=== PATIENT | male | born 1945 | race Caucasian/White ===

== ENCOUNTER 2018-06-25 17:57 | Inpatient (IN) ==
[2018-06-25] MEDS ORDERED: DIPH/TET/ACEL PERT BOOSTER VACCINE 0.5 ML VIAL IM ONE (18:35)
[2018-06-25] MEDS ORDERED: SODIUM CHLORIDE 0.9% 1,000 ML IV STA (18:35)
[2018-06-25] MEDS ORDERED: ALBUTEROL/IPRATROPIUM 3 ML NEB RESP TX STA (18:37)
[2018-06-25 19:46] LABS: Basophils # 0.1 10*3/uL (0.0-0.2); Basophils % 0.4 % (0.0-0.8); Hematocrit 45.4 VOL% (42.0-52.0); Hemoglobin 15.2 GM/DL (14.0-18.0); Immature Granulocytes % 0.4 %; Immature Granulocytes Absolute 0.05 #; Lymphocytes # 1.3 10*3/uL (1.4-4.0); Lymphocytes % 9.6 % (21.2-54.2); Mean Corpuscular HGB Conc 33.5 GM/DL (32-36); Mean Corpuscular Hemoglobin 29 PG (27-34); Mean Corpuscular Volume 86.8 FL (87-102); Mean Platelet Volume 9.3 FL (9.6-12.0); Monocytes # 0.7 10*3/uL (0.11-0.8); Monocytes % 5.3 % (1.7-12.7); Neutrophils # 11.2 10*3/uL (1.4-7.4); Neutrophils % 84.3 % (38.7-73.9); Platelet Count 276 T/CUMM (130-400); Red Blood Count 5.23 MC/CUMM (3.8-5.5); Red Cell Distribution Width 13.6 % (9.3-17.3); White Blood Count 13.3 T/CUMM (4-12)
[2018-06-25 19:55] LABS: Apearance,Urine Slightly Hazy (Clear); Bilirubin,Urine Negative (Negative); Blood, Urine Large mg/dL (Negative); Glucose,Urine (UA) Negative (Negative); Ketones,Urine Negative (Negative); Mucus,Urine Occasional /LPF (Occasional); Nitrite,Urine Negative (Negative); Protein,Urine 100 MG/DL; RBC,Urine 386 /HPF (0-4); Urine Color Yellow (Yellow); Urine Specific Gravity 1.014 (1.001-1.035); Urine Urobilinogen < 2.0 EU/DL (0.2-1.0)
[2018-06-25 20:09] LABS: Albumin 3.1 G/DL (3.4-5.0); Bilirubin,Total 0.6 MG/DL (0.2-1.0); Calcium 9.1 MG/DL (8.5-10.1); Osmolality,Calculated 265.5 MOS/KG (273-304); Potassium 3.8 MMOL/L (3.5-5.1); Total Protein 8.1 G/DL (6.4-8.3)
[2018-06-25] MEDS ORDERED: ALBUTEROL 2.5 MG/3 ML NEB RESP TX PRN (21:48)
[2018-06-25 22:10] LABS: ABG Base Excess 2.3 MMOL/L (-2.5-2.5); ABG HCO3 26.3 MMOL/L (20-26); ABG Oxygen Saturation 91.2 % (95-100); ABG PCO2 41.2 MM HG (35-48); ABG PH 7.424 (7.35-7.45); ABG PO2 61.8 MM HG (80-95); ABG TCO2 22.9 MMOL/L (23-27); Allen Test Positive; Pt O2 Delivery Device BIPAP
[2018-06-25] MEDS: LEVOFLOXACIN INJ 750 MG in PREMIX 1 EACH IV SCH (23:00)
[2018-06-25] MEDS: methylPREDNISolone SOD SUC 40 MG/1 ML VIAL IV SCH ×2 (23:00→23:50)
[2018-06-25] MEDS: PANTOPRAZOLE 40 MG VIAL IV SCH (23:00)
[2018-06-26 03:17] LABS: Amorphous Crystals,Urine Occasional /HPF (Few); Apearance,Urine CLEAR (Clear); Bacteria,Urine Occasional /HPF (Few); Bilirubin,Urine Negative (Negative); Blood, Urine Large mg/dL (Negative); Glucose,Urine (UA) Negative (Negative); Hyaline Casts,Urine 13 /LPF (0-3); Ketones,Urine Negative (Negative); Mucus,Urine Occasional /LPF (Occasional); Nitrite,Urine Negative (Negative); Protein,Urine 30 MG/DL; RBC,Urine 3 /HPF (0-4); Squamous Epithelial Cell,Urine Occasional /HPF (0-10); Urine Color Yellow (Yellow); Urine Specific Gravity 1.012 (1.001-1.035); Urine Urobilinogen < 2.0 EU/DL (0.2-1.0); WBC,Urine 2 /HPF (0-6)
[2018-06-26 03:31] LABS: ABG Base Excess 1.8 MMOL/L (-2.5-2.5); ABG HCO3 25.8 MMOL/L (20-26); ABG Oxygen Saturation 92.1 % (95-100); ABG PCO2 42.3 MM HG (35-48); ABG PH 7.409 (7.35-7.45); ABG TCO2 22.8 MMOL/L (23-27); Allen Test Positive; Pt O2 Delivery Device BIPAP
[2018-06-26 03:37] LABS: Basophils # 0.1 10*3/uL (0.0-0.2); Basophils % 0.4 % (0.0-0.8); Immature Granulocytes % 0.4 %; Immature Granulocytes Absolute 0.05 #; Lymphocytes % 8.5 % (21.2-54.2); Mean Corpuscular HGB Conc 34.1 GM/DL (32-36); Mean Corpuscular Hemoglobin 29 PG (27-34); Mean Corpuscular Volume 85.6 FL (87-102); Mean Platelet Volume 9.4 FL (9.6-12.0); Monocytes # 0.2 10*3/uL (0.11-0.8); Neutrophils # 10.4 10*3/uL (1.4-7.4); Neutrophils % 88.7 % (38.7-73.9); Platelet Count 266 T/CUMM (130-400); Red Blood Count 5.14 MC/CUMM (3.8-5.5); Red Cell Distribution Width 13.5 % (9.3-17.3); White Blood Count 11.7 T/CUMM (4-12)
[2018-06-26 04:24] LABS: Calcium 8.5 MG/DL (8.5-10.1); Osmolality,Calculated 268.2 MOS/KG (273-304); Potassium 3.9 MMOL/L (3.5-5.1)
[2018-06-26] MEDS: IPRATROPIUM 500 MCG/2.5 ML NEB RESP TX SCH ×4 (07:09→19:14)
[2018-06-26] MEDS: BUDESONIDE 0.5 MG/2 ML NEB RESP TX SCH ×2 (07:09→19:18)
[2018-06-26] MEDS ORDERED: PANTOPRAZOLE 40 MG TABLET PO SCH (09:00)
[2018-06-26] MEDS: LORATADINE 10 MG TABLET PO SCH (09:18)
[2018-06-26] MEDS: ENOXAPARIN 40 MG/0.4 ML SYRINGE SUBCUT SCH (09:18)
[2018-06-26] MEDS: ALLOPURINOL 100 MG TABLET PO SCH (09:19)
[2018-06-26] MEDS: FUROSEMIDE 20 MG TABLET PO SCH (09:19)
[2018-06-26] MEDS: CARVEDILOL 3.125 MG TABLET PO SCH ×2 (09:19→18:03)
[2018-06-26] MEDS: POTASSIUM CHLORIDE 20 MEQ TABLET PO SCH (09:19)
[2018-06-26] MEDS: FLUTICASONE/SALMETEROL 250-50 DISKUS 14 DOSE INH SCH ×2 (09:20→23:04)
[2018-06-26] MEDS: LOSARTAN 50 MG TABLET PO SCH (09:20)
[2018-06-26] MEDS: SPIRONOLACTONE 25 MG TABLET PO SCH (09:20)
[2018-06-26] MEDS: amLODIPine 5 MG TABLET PO SCH (09:22)
[2018-06-26] MEDS: methylPREDNISolone SOD SUC 40 MG/1 ML VIAL IV SCH ×2 (11:45→23:05)
[2018-06-26] MEDS: LEVOFLOXACIN INJ 750 MG in PREMIX 1 EACH IV SCH (20:59)
[2018-06-26] MEDS ORDERED: THEOPHYLLINE ER 300 MG TABLET PO SCH (21:00)
[2018-06-26] MEDS: PANTOPRAZOLE 40 MG VIAL IV SCH (23:04)
[2018-06-27 04:19] LABS: Calcium 9.1 MG/DL (8.5-10.1); Osmolality,Calculated 267.5 MOS/KG (273-304); Potassium 4.6 MMOL/L (3.5-5.1)
[2018-06-27] MEDS: BUDESONIDE 0.5 MG/2 ML NEB RESP TX SCH ×2 (07:35→19:20)
[2018-06-27] MEDS: IPRATROPIUM 500 MCG/2.5 ML NEB RESP TX SCH ×4 (07:35→19:20)
[2018-06-27] MEDS: POTASSIUM CHLORIDE 20 MEQ TABLET PO SCH (10:34)
[2018-06-27] MEDS: amLODIPine 5 MG TABLET PO SCH (10:34)
[2018-06-27] MEDS: SPIRONOLACTONE 25 MG TABLET PO SCH (10:34)
[2018-06-27] MEDS: CARVEDILOL 3.125 MG TABLET PO SCH (10:35)
[2018-06-27] MEDS: ALLOPURINOL 100 MG TABLET PO SCH (10:35)
[2018-06-27] MEDS: ENOXAPARIN 40 MG/0.4 ML SYRINGE SUBCUT SCH (10:35)
[2018-06-27] MEDS: FUROSEMIDE 20 MG TABLET PO SCH (10:35)
[2018-06-27] MEDS: LORATADINE 10 MG TABLET PO SCH (10:35)
[2018-06-27] MEDS: LOSARTAN 50 MG TABLET PO SCH (10:35)
[2018-06-27] MEDS: methylPREDNISolone SOD SUC 40 MG/1 ML VIAL IV SCH ×2 (10:36→23:11)
[2018-06-27] MEDS: FLUTICASONE/SALMETEROL 250-50 DISKUS 14 DOSE INH SCH ×2 (10:37→21:00)
[2018-06-27] MEDS: CARVEDILOL 6.25 MG TABLET PO SCH (16:46)
[2018-06-27] MEDS: LEVOFLOXACIN INJ 750 MG in PREMIX 1 EACH IV SCH (23:10)
[2018-06-27] MEDS: PANTOPRAZOLE 40 MG VIAL IV SCH (23:10)
[2018-06-28] MEDS: IPRATROPIUM 500 MCG/2.5 ML NEB RESP TX SCH ×4 (07:18→19:13)
[2018-06-28] MEDS: BUDESONIDE 0.5 MG/2 ML NEB RESP TX SCH ×2 (07:18→19:14)
[2018-06-28] MEDS: LORATADINE 10 MG TABLET PO SCH (08:37)
[2018-06-28] MEDS: LOSARTAN 50 MG TABLET PO SCH (08:37)
[2018-06-28] MEDS: SPIRONOLACTONE 25 MG TABLET PO SCH (08:37)
[2018-06-28] MEDS: amLODIPine 5 MG TABLET PO SCH (08:37)
[2018-06-28] MEDS: CARVEDILOL 6.25 MG TABLET PO SCH ×2 (08:37→16:22)
[2018-06-28] MEDS: ALLOPURINOL 100 MG TABLET PO SCH (08:37)
[2018-06-28] MEDS: FUROSEMIDE 20 MG TABLET PO SCH (08:37)
[2018-06-28] MEDS: ENOXAPARIN 40 MG/0.4 ML SYRINGE SUBCUT SCH (08:37)
[2018-06-28] MEDS: POTASSIUM CHLORIDE 20 MEQ TABLET PO SCH (08:37)
[2018-06-28] MEDS: FLUTICASONE/SALMETEROL 250-50 DISKUS 14 DOSE INH SCH ×2 (08:38→21:29)
[2018-06-28] MEDS: methylPREDNISolone SOD SUC 40 MG/1 ML VIAL IV SCH ×3 (10:08→21:48)
[2018-06-28] MEDS ORDERED: ZALEPLON 5 MG CAPSULE PO PRN (17:11)
[2018-06-28] MEDS: PANTOPRAZOLE 40 MG VIAL IV SCH (21:29)
[2018-06-28] MEDS: LEVOFLOXACIN INJ 750 MG in PREMIX 1 EACH IV SCH (21:34)
[2018-06-29] MEDS: BUDESONIDE 0.5 MG/2 ML NEB RESP TX SCH (07:05)
[2018-06-29] MEDS: IPRATROPIUM 500 MCG/2.5 ML NEB RESP TX SCH (07:05)
[2018-06-29] MEDS: FLUTICASONE/SALMETEROL 250-50 DISKUS 14 DOSE INH SCH (09:59)
[2018-06-29] MEDS: POTASSIUM CHLORIDE 20 MEQ TABLET PO SCH (09:59)
[2018-06-29] MEDS: SPIRONOLACTONE 25 MG TABLET PO SCH (09:59)
[2018-06-29] MEDS: LORATADINE 10 MG TABLET PO SCH (09:59)
[2018-06-29] MEDS: FUROSEMIDE 20 MG TABLET PO SCH (10:00)
[2018-06-29] MEDS: methylPREDNISolone SOD SUC 40 MG/1 ML VIAL IV SCH (10:00)
[2018-06-29] MEDS: amLODIPine 5 MG TABLET PO SCH (10:00)
[2018-06-29] MEDS: LOSARTAN 50 MG TABLET PO SCH (10:00)
[2018-06-29] MEDS: ENOXAPARIN 40 MG/0.4 ML SYRINGE SUBCUT SCH (10:00)
[2018-06-29] MEDS: ALLOPURINOL 100 MG TABLET PO SCH (10:00)
[2018-06-29] MEDS: CARVEDILOL 6.25 MG TABLET PO SCH (10:00)
[2018-06-29 12:05] VITALS: BP 138/82
== END 2018-06-29 15:58 | DRG 189 ==
LOC: N.ED 17:57 → EDUNIT# 17:57 → N.EDINP 21:48 → SUATTDRO 21:48 → N.CC 22:30 → N.TELES 06-26 18:42
PROVIDERS: ADMIT Family Medicine; ATTEND Internal Medicine

== ENCOUNTER 2021-03-14 01:56 | Inpatient (IN) ==
[2021-03-14] MEDS ORDERED: FUROSEMIDE 40 MG/4 ML VIAL IV STA (02:19)
[2021-03-14] MEDS ORDERED: methylPREDNISolone SOD SUC 125 MG/2 ML VIAL IV STA (02:19)
[2021-03-14] MEDS ORDERED: ALBUTEROL 2.5 MG/3 ML NEB RESP TX ONE (02:30)
[2021-03-14] MEDS ORDERED: ONDANSETRON 4 MG/2 ML VIAL IV STA (02:30)
[2021-03-14] MEDS ORDERED: ALBUTEROL NEB SOLN 5 MG/ML 20 ML/BOTTLE CONT NEB SCH (02:30)
[2021-03-14 03:00] LABS: ABG Base Excess -0.5 MMOL/L (-2.5-2.5); ABG HCO3 23.6 MMOL/L (20-26); ABG Oxygen Saturation 84.4 % (95-100); ABG PCO2 33.8 MM HG (35-48); ABG PH 7.438 (7.35-7.45); ABG PO2 53.3 MM HG (80-95); ABG TCO2 19.5 MMOL/L (23-27)
[2021-03-14 03:08] LABS: Basophils % 0.2 % (0.0-0.8); Eosinophils % 0.2 % (0.00-10.9); Hematocrit 45.5 VOL% (42.0-52.0); Hemoglobin 14.3 GM/DL (14.0-18.0); Immature Granulocytes % 1.7 %; Immature Granulocytes Absolute 0.17 #; Lymphocytes # 0.5 10*3/uL (1.4-4.0); Lymphocytes % 5.4 % (21.2-54.2); Mean Corpuscular HGB Conc 31.4 GM/DL (32-36); Mean Corpuscular Volume 81.4 FL (87-102); Mean Platelet Volume 9.1 FL (9.6-12.0); Monocytes % 3.7 % (1.7-12.7); NRBC # 0.02 10*3/uL; Neutrophils % 88.8 % (38.7-73.9); Platelet Count 267 T/CUMM (130-400); Red Blood Count 5.59 MC/CUMM (3.8-5.5); Red Cell Distribution Width 16.6 % (9.3-17.3)
[2021-03-14] MEDS ORDERED: PIPERACILLIN/TAZOBACTAM 3,375 MG in SODIUM CHLORIDE 0.9% 100 ML IV STA (03:15)
[2021-03-14 03:21] LABS: INR 1.2
[2021-03-14 03:25] LABS: Albumin 3.2 G/DL (3.4-5.0); Bilirubin,Total 1.2 MG/DL (0.2-1.0); Calcium 9.5 MG/DL (8.5-10.1); Osmolality,Calculated 271.9 MOS/KG (273-304); Potassium 5.4 MMOL/L (3.5-5.1); Total Protein 7.2 G/DL (6.4-8.2)
[2021-03-14 04:20] LABS: Bacteria,Urine Occasional /HPF (Few); Bilirubin,Urine Negative (Negative); Blood, Urine Moderate mg/dL (Negative); Glucose,Urine (UA) Negative (Negative); Ketones,Urine Negative (Negative); Mucus,Urine Occasional /LPF (Occasional); Nitrite,Urine Negative (Negative); Protein,Urine Negative; RBC,Urine 19 /HPF (0-4); Urine Appearance CLEAR (Clear); Urine Color Straw (Yellow); Urine Specific Gravity 1.006 (1.001-1.035); Urine Urobilinogen < 2.0 EU/DL (0.2-1.0); WBC,Urine <1 /HPF (0-6)
[2021-03-14 04:23] LABS: Platelet Estimate Adequate
[2021-03-14 04:36] LABS: Barbiturates Screen,Urine Negative (Negative); Benzodiazepines Screen,Urine Negative (Negative); Cannabinoid Screen,Urine Negative (Negative); Opiate Screen,Urine Negative (Negative); Phencyclidine Screen,Urine Negative (Negative)
[2021-03-14] MEDS ORDERED: ONDANSETRON 4 MG/2 ML VIAL IV PRN (05:14)
[2021-03-14] MEDS ORDERED: DEXTROSE 50% 25 GM/50 ML VIAL IV PRN (05:14)
[2021-03-14] MEDS ORDERED: MORPHINE 4 MG/1 ML VIAL IV PRN (05:14)
[2021-03-14] MEDS ORDERED: hydrALAZINE 20 MG/1 ML VIAL IV PRN (05:14)
[2021-03-14] MEDS ORDERED: diphenhydrAMINE CAP 25 MG CAPSULE PO PRN (05:14)
[2021-03-14] MEDS ORDERED: NICOTINE 21 MG/24 HR PATCH TRANSDERM PRN (05:14)
[2021-03-14] MEDS ORDERED: guaiFENesin/DM ER 600-30 MG TABLET PO PRN (05:14)
[2021-03-14] MEDS ORDERED: ACETAMINOPHEN 325 MG TABLET PO PRN (05:14)
[2021-03-14] MEDS ORDERED: GLUCAGON 1 MG VIAL IM PRN (05:14)
[2021-03-14] MEDS ORDERED: ENOXAPARIN 120 MG/0.8 ML SYRINGE SUBCUT ONE (06:27)
[2021-03-14] MEDS ORDERED: VANCOMYCIN INJ 1,500 MG in SODIUM CHLORIDE 0.9% 500 ML IV SCH (06:30)
[2021-03-14] MEDS: AZITHROMYCIN INJ 500 MG in SODIUM CHLORIDE 0.9% 250 ML IV SCH (06:59)
[2021-03-14] MEDS ORDERED: methylPREDNISolone SOD SUC 40 MG/1 ML VIAL IV SCH (07:00)
[2021-03-14] MEDS: ALBUTEROL/IPRATROPIUM 3 ML NEB RESP TX SCH ×6 (07:20→19:34)
[2021-03-14] MEDS ORDERED: carvediloL 6.25 MG TABLET PO SCH (08:00)
[2021-03-14] MEDS: FUROSEMIDE 40 MG/4 ML VIAL IV SCH ×2 (08:37→15:38)
[2021-03-14] MEDS: SPIRONOLACTONE 25 MG TABLET PO SCH (08:48)
[2021-03-14] MEDS: amLODIPine 5 MG TABLET PO SCH (08:48)
[2021-03-14] MEDS: VANCOMYCIN INJ 2,000 MG in SODIUM CHLORIDE 0.9% 500 ML IV SCH (10:32)
[2021-03-14] MEDS: methylPREDNISolone SOD SUC 40 MG/1 ML VIAL IV SCH ×3 (11:26→19:19)
[2021-03-14] MEDS ORDERED: carvediloL 3.125 MG TABLET PO STA (13:27)
[2021-03-14] MEDS: PIPERACILLIN/TAZOBACTAM 3,375 MG in SODIUM CHLORIDE 0.9% 100 ML IV SCH ×2 (14:00→21:37)
[2021-03-14] MEDS: ASPIRIN EC 81 MG TABLET PO SCH (14:16)
[2021-03-14] MEDS: carvediloL 12.5 MG TABLET PO SCH (21:33)
[2021-03-15] MEDS: ALBUTEROL/IPRATROPIUM 3 ML NEB RESP TX SCH ×4 (00:07→19:24)
[2021-03-15] MEDS: methylPREDNISolone SOD SUC 40 MG/1 ML VIAL IV SCH ×4 (03:02→16:57)
[2021-03-15] MEDS: VANCOMYCIN INJ 2,000 MG in SODIUM CHLORIDE 0.9% 500 ML IV SCH ×2 (03:08→21:45)
[2021-03-15 05:46] LABS: Hematocrit 40.2 VOL% (42.0-52.0); Immature Granulocytes % 0.6 %; Immature Granulocytes Absolute 0.04 #; Lymphocytes # 0.2 10*3/uL (1.4-4.0); Mean Corpuscular HGB Conc 32.3 GM/DL (32-36); Mean Corpuscular Volume 80.2 FL (87-102); Monocytes % 1.4 % (1.7-12.7); Platelet Count 250 T/CUMM (130-400); Red Blood Count 5.01 MC/CUMM (3.8-5.5); Red Cell Distribution Width 15.8 % (9.3-17.3); White Blood Count 7.1 T/CUMM (4-12)
[2021-03-15 06:07] LABS: Calcium 8.3 MG/DL (8.5-10.1); Potassium 3.2 MMOL/L (3.5-5.1)
[2021-03-15 06:15] LABS: Band Neutrophils 3 % (0-10); Hypochromasia 1+; Lymphocytes 1 % (20-55); Microcytosis 1+; Segmented Neutrophils 94 % (50-85); Total Cells Counted 100
[2021-03-15 06:16] LABS: Ovalocytes Slight; Platelet Estimate Normal
[2021-03-15] MEDS: PIPERACILLIN/TAZOBACTAM 3,375 MG in SODIUM CHLORIDE 0.9% 100 ML IV SCH ×2 (07:02→16:11)
[2021-03-15] MEDS ORDERED: POTASSIUM CHLORIDE 20 MEQ TABLET PO ONE (08:28)
[2021-03-15] MEDS: amLODIPine 5 MG TABLET PO SCH (08:29)
[2021-03-15] MEDS: ASPIRIN EC 81 MG TABLET PO SCH (08:29)
[2021-03-15] MEDS: LOSARTAN 50 MG TABLET PO SCH (08:29)
[2021-03-15] MEDS: carvediloL 12.5 MG TABLET PO SCH ×2 (08:29→21:17)
[2021-03-15] MEDS: SPIRONOLACTONE 25 MG TABLET PO SCH (08:29)
[2021-03-15] MEDS: FUROSEMIDE 40 MG/4 ML VIAL IV SCH ×2 (08:30→16:09)
[2021-03-15] MEDS ORDERED: METOPROLOL SUCCINATE XL 50 MG TABLET PO SCH (09:00)
[2021-03-15] MEDS: APIXABAN 5 MG TABLET PO SCH ×2 (11:01→21:16)
[2021-03-15] MEDS: ASCORBIC ACID 500 MG TABLET PO SCH ×2 (11:01→21:16)
[2021-03-15] MEDS: AZITHROMYCIN INJ 500 MG in SODIUM CHLORIDE 0.9% 250 ML IV SCH (11:03)
[2021-03-15] MEDS: FLUTICASONE/SALMETEROL 250-50 DISKUS 14 DOSE INH SCH ×2 (13:07→21:17)
[2021-03-15] MEDS: ZALEPLON 5 MG CAPSULE PO SCH (21:16)
[2021-03-16] MEDS: PIPERACILLIN/TAZOBACTAM 3,375 MG in SODIUM CHLORIDE 0.9% 100 ML IV SCH ×2 (00:20→06:45)
[2021-03-16] MEDS: ALBUTEROL/IPRATROPIUM 3 ML NEB RESP TX SCH ×4 (02:26→18:52)
[2021-03-16] MEDS: methylPREDNISolone SOD SUC 40 MG/1 ML VIAL IV SCH ×3 (03:43→16:26)
[2021-03-16 05:37] LABS: Basophils % 0.1 % (0.0-0.8); Hematocrit 41.2 VOL% (42.0-52.0); Hemoglobin 13.1 GM/DL (14.0-18.0); Immature Granulocytes % 0.6 %; Immature Granulocytes Absolute 0.04 #; Lymphocytes # 0.2 10*3/uL (1.4-4.0); Lymphocytes % 3.5 % (21.2-54.2); Mean Corpuscular HGB Conc 31.8 GM/DL (32-36); Mean Platelet Volume 9.2 FL (9.6-12.0); Monocytes % 1.7 % (1.7-12.7); Neutrophils % 94.1 % (38.7-73.9); Platelet Count 241 T/CUMM (130-400); Red Blood Count 5.15 MC/CUMM (3.8-5.5); Red Cell Distribution Width 15.6 % (9.3-17.3); White Blood Count 6.9 T/CUMM (4-12)
[2021-03-16 05:57] LABS: Calcium 8.1 MG/DL (8.5-10.1); Osmolality,Calculated 286.7 MOS/KG (273-304); Potassium 3.3 MMOL/L (3.5-5.1)
[2021-03-16 06:29] LABS: Lymphocytes 3 % (20-55); Platelet Estimate Normal; Segmented Neutrophils 96 % (50-85); Total Cells Counted 100
[2021-03-16] MEDS ORDERED: POTASSIUM CHLORIDE 20 MEQ TABLET PO ONE (09:00)
[2021-03-16] MEDS: ASPIRIN EC 81 MG TABLET PO SCH (09:48)
[2021-03-16] MEDS: carvediloL 12.5 MG TABLET PO SCH ×2 (09:48→21:31)
[2021-03-16] MEDS: LOSARTAN 50 MG TABLET PO SCH (09:48)
[2021-03-16] MEDS: amLODIPine 5 MG TABLET PO SCH (09:48)
[2021-03-16] MEDS: APIXABAN 5 MG TABLET PO SCH ×2 (09:48→21:31)
[2021-03-16] MEDS: SPIRONOLACTONE 25 MG TABLET PO SCH (09:48)
[2021-03-16] MEDS: ASCORBIC ACID 500 MG TABLET PO SCH ×2 (09:48→21:31)
[2021-03-16] MEDS: FLUTICASONE/SALMETEROL 250-50 DISKUS 14 DOSE INH SCH ×2 (09:49→21:30)
[2021-03-16] MEDS: FUROSEMIDE 40 MG/4 ML VIAL IV SCH ×2 (09:59→16:24)
[2021-03-16] MEDS: AZITHROMYCIN INJ 500 MG in SODIUM CHLORIDE 0.9% 250 ML IV SCH (11:09)
[2021-03-16] MEDS: cefTRIAXone 1,000 MG in SODIUM CHLORIDE 0.9% 100 ML IV SCH (13:15)
[2021-03-16] MEDS: ZALEPLON 5 MG CAPSULE PO SCH (21:31)
[2021-03-17] MEDS: ALBUTEROL/IPRATROPIUM 3 ML NEB RESP TX SCH ×4 (01:00→19:07)
[2021-03-17] MEDS: methylPREDNISolone SOD SUC 40 MG/1 ML VIAL IV SCH ×3 (02:04→16:24)
[2021-03-17 05:36] LABS: Basophils % 0.1 % (0.0-0.8); Hematocrit 42.6 VOL% (42.0-52.0); Hemoglobin 13.5 GM/DL (14.0-18.0); Immature Granulocytes % 0.7 %; Immature Granulocytes Absolute 0.06 #; Lymphocytes # 0.3 10*3/uL (1.4-4.0); Lymphocytes % 3.2 % (21.2-54.2); Mean Corpuscular HGB Conc 31.7 GM/DL (32-36); Mean Corpuscular Volume 81.3 FL (87-102); Mean Platelet Volume 8.8 FL (9.6-12.0); Monocytes % 1.4 % (1.7-12.7); Neutrophils % 94.6 % (38.7-73.9); Platelet Count 235 T/CUMM (130-400); Red Blood Count 5.24 MC/CUMM (3.8-5.5); Red Cell Distribution Width 15.5 % (9.3-17.3); White Blood Count 8.4 T/CUMM (4-12)
[2021-03-17 05:58] LABS: Calcium 8.5 MG/DL (8.5-10.1); Potassium 3.3 MMOL/L (3.5-5.1)
[2021-03-17 07:05] LABS: Band Neutrophils 1 % (0-10); Lymphocytes 3 % (20-55); Platelet Estimate Normal; Segmented Neutrophils 94 % (50-85); Total Cells Counted 100
[2021-03-17] MEDS: APIXABAN 5 MG TABLET PO SCH ×2 (09:06→21:00)
[2021-03-17] MEDS: ASPIRIN EC 81 MG TABLET PO SCH (09:06)
[2021-03-17] MEDS: SPIRONOLACTONE 25 MG TABLET PO SCH (09:06)
[2021-03-17] MEDS: ASCORBIC ACID 500 MG TABLET PO SCH ×2 (09:06→21:00)
[2021-03-17] MEDS: LOSARTAN 50 MG TABLET PO SCH (09:07)
[2021-03-17] MEDS: amLODIPine 5 MG TABLET PO SCH (09:07)
[2021-03-17] MEDS: FUROSEMIDE 40 MG/4 ML VIAL IV SCH ×2 (09:11→15:53)
[2021-03-17] MEDS ORDERED: POTASSIUM CHLORIDE 20 MEQ TABLET PO ONE (09:27)
[2021-03-17] MEDS: FLUTICASONE/SALMETEROL 250-50 DISKUS 14 DOSE INH SCH ×2 (10:18→21:00)
[2021-03-17] MEDS: carvediloL 12.5 MG TABLET PO SCH ×2 (10:18→21:00)
[2021-03-17] MEDS: AZITHROMYCIN INJ 500 MG in SODIUM CHLORIDE 0.9% 250 ML IV SCH (10:19)
[2021-03-17] MEDS ORDERED: MAGNESIUM HYDROXIDE SUSP 30 ML UDCUP PO PRN (11:15)
[2021-03-17] MEDS: DOCUSATE SODIUM 100 MG CAPSULE PO SCH ×2 (12:31→21:00)
[2021-03-17] MEDS: POLYETHYLENE GLYCOL POWDER 17 GM PACK PO SCH (12:31)
[2021-03-17] MEDS: cefTRIAXone 1,000 MG in SODIUM CHLORIDE 0.9% 100 ML IV SCH (12:48)
[2021-03-17] MEDS: ZALEPLON 5 MG CAPSULE PO SCH (21:00)
[2021-03-18] MEDS: methylPREDNISolone SOD SUC 40 MG/1 ML VIAL IV SCH ×3 (01:00→16:23)
[2021-03-18] MEDS: ALBUTEROL/IPRATROPIUM 3 ML NEB RESP TX SCH ×4 (02:54→20:51)
[2021-03-18 05:37] LABS: Basophils % 0.1 % (0.0-0.8); Hematocrit 44.5 VOL% (42.0-52.0); Hemoglobin 13.8 GM/DL (14.0-18.0); Immature Granulocytes % 0.6 %; Immature Granulocytes Absolute 0.08 #; Lymphocytes # 0.3 10*3/uL (1.4-4.0); Lymphocytes % 2.2 % (21.2-54.2); Mean Corpuscular Volume 82.1 FL (87-102); Mean Platelet Volume 9.8 FL (9.6-12.0); Monocytes % 2.6 % (1.7-12.7); Neutrophils % 94.5 % (38.7-73.9); Platelet Count 217 T/CUMM (130-400); Red Blood Count 5.42 MC/CUMM (3.8-5.5); Red Cell Distribution Width 15.7 % (9.3-17.3); White Blood Count 12.8 T/CUMM (4-12)
[2021-03-18 05:58] LABS: Calcium 8.6 MG/DL (8.5-10.1); Osmolality,Calculated 288.7 MOS/KG (273-304)
[2021-03-18 06:02] LABS: Lymphocytes 1 % (20-55); Platelet Estimate Adequate; Segmented Neutrophils 98 % (50-85); Total Cells Counted 100
[2021-03-18] MEDS: amLODIPine 5 MG TABLET PO SCH (08:32)
[2021-03-18] MEDS: FUROSEMIDE 40 MG/4 ML VIAL IV SCH ×2 (08:32→16:27)
[2021-03-18] MEDS: LOSARTAN 50 MG TABLET PO SCH (08:33)
[2021-03-18] MEDS: ASCORBIC ACID 500 MG TABLET PO SCH ×2 (08:33→21:54)
[2021-03-18] MEDS: ASPIRIN EC 81 MG TABLET PO SCH (08:34)
[2021-03-18] MEDS: carvediloL 12.5 MG TABLET PO SCH ×2 (08:34→22:03)
[2021-03-18] MEDS: FLUTICASONE/SALMETEROL 250-50 DISKUS 14 DOSE INH SCH (08:34)
[2021-03-18] MEDS: DOCUSATE SODIUM 100 MG CAPSULE PO SCH ×2 (08:34→21:53)
[2021-03-18] MEDS: APIXABAN 5 MG TABLET PO SCH ×2 (08:34→21:52)
[2021-03-18] MEDS: POLYETHYLENE GLYCOL POWDER 17 GM PACK PO SCH (08:34)
[2021-03-18] MEDS: SPIRONOLACTONE 25 MG TABLET PO SCH (08:34)
[2021-03-18] MEDS: AZITHROMYCIN INJ 500 MG in SODIUM CHLORIDE 0.9% 250 ML IV SCH (10:20)
[2021-03-18] MEDS: BUDESONIDE 0.5 MG/2 ML NEB RESP TX SCH ×2 (13:30→20:51)
[2021-03-18] MEDS: cefTRIAXone 1,000 MG in SODIUM CHLORIDE 0.9% 100 ML IV SCH (14:03)
[2021-03-18] MEDS: ZALEPLON 5 MG CAPSULE PO SCH (21:53)
[2021-03-19] MEDS: methylPREDNISolone SOD SUC 40 MG/1 ML VIAL IV SCH ×3 (01:47→16:44)
[2021-03-19] MEDS: ALBUTEROL/IPRATROPIUM 3 ML NEB RESP TX SCH ×4 (01:48→19:36)
[2021-03-19] MEDS: BUDESONIDE 0.5 MG/2 ML NEB RESP TX SCH ×2 (07:10→19:36)
[2021-03-19] MEDS: ASCORBIC ACID 500 MG TABLET PO SCH ×2 (09:02→21:07)
[2021-03-19] MEDS: ASPIRIN EC 81 MG TABLET PO SCH (09:02)
[2021-03-19] MEDS: APIXABAN 5 MG TABLET PO SCH ×2 (09:02→21:06)
[2021-03-19] MEDS: LOSARTAN 50 MG TABLET PO SCH (09:02)
[2021-03-19] MEDS: SPIRONOLACTONE 25 MG TABLET PO SCH (09:03)
[2021-03-19] MEDS: POLYETHYLENE GLYCOL POWDER 17 GM PACK PO SCH (09:03)
[2021-03-19] MEDS: amLODIPine 5 MG TABLET PO SCH (09:03)
[2021-03-19] MEDS: carvediloL 12.5 MG TABLET PO SCH (09:03)
[2021-03-19] MEDS: DOCUSATE SODIUM 100 MG CAPSULE PO SCH ×2 (09:03→21:06)
[2021-03-19] MEDS: FUROSEMIDE 40 MG/4 ML VIAL IV SCH ×2 (09:04→16:44)
[2021-03-19] MEDS: AZITHROMYCIN INJ 500 MG in SODIUM CHLORIDE 0.9% 250 ML IV SCH (11:27)
[2021-03-19] MEDS ORDERED: metOLazone 5 MG TABLET PO SCH (12:00)
[2021-03-19 12:09] LABS: ABG Base Excess 8.2 MMOL/L (-2.5-2.5); ABG HCO3 32.4 MMOL/L (20-26); ABG PCO2 42.9 MM HG (35-48); ABG PH 7.496 (7.35-7.45); ABG PO2 54.4 MM HG (80-95); ABG TCO2 33.7 MMOL/L (23-27)
[2021-03-19] MEDS: cefTRIAXone 1,000 MG in SODIUM CHLORIDE 0.9% 100 ML IV SCH (13:46)
[2021-03-19] MEDS ORDERED: metOLazone 5 MG TABLET PO ONE (14:00)
[2021-03-19] MEDS ORDERED: TUBERCULIN SKIN TEST 0.1 ML SYRINGE INTRADERM ONE (15:36)
[2021-03-19] MEDS: ZALEPLON 5 MG CAPSULE PO SCH (21:06)
[2021-03-19] MEDS: carvediloL 6.25 MG TABLET PO SCH (21:56)
[2021-03-20] MEDS: ALBUTEROL/IPRATROPIUM 3 ML NEB RESP TX SCH ×3 (01:14→13:10)
[2021-03-20] MEDS: methylPREDNISolone SOD SUC 40 MG/1 ML VIAL IV SCH ×2 (01:52→09:52)
[2021-03-20 05:40] LABS: Basophils % 0.1 % (0.0-0.8); Hematocrit 44.1 VOL% (42.0-52.0); Hemoglobin 14.4 GM/DL (14.0-18.0); Immature Granulocytes % 0.9 %; Lymphocytes # 0.3 10*3/uL (1.4-4.0); Lymphocytes % 2.6 % (21.2-54.2); Mean Corpuscular HGB Conc 32.7 GM/DL (32-36); Mean Corpuscular Volume 78.6 FL (87-102); Mean Platelet Volume 9.2 FL (9.6-12.0); Monocytes % 2.6 % (1.7-12.7); Neutrophils % 93.8 % (38.7-73.9); Platelet Count 202 T/CUMM (130-400); Red Blood Count 5.61 MC/CUMM (3.8-5.5); Red Cell Distribution Width 15.8 % (9.3-17.3); White Blood Count 11.2 T/CUMM (4-12)
[2021-03-20 06:02] LABS: Calcium 8.8 MG/DL (8.5-10.1); Osmolality,Calculated 278.2 MOS/KG (273-304); Potassium 3.5 MMOL/L (3.5-5.1)
[2021-03-20 06:03] LABS: Lymphocytes 4 % (20-55); Platelet Estimate Normal; Segmented Neutrophils 93 % (50-85); Total Cells Counted 100
[2021-03-20 06:04] LABS: Microcytosis Slight
[2021-03-20] MEDS: BUDESONIDE 0.5 MG/2 ML NEB RESP TX SCH (07:40)
[2021-03-20] MEDS ORDERED: FUROSEMIDE 40 MG/4 ML VIAL IV SCH (08:00)
[2021-03-20] MEDS ORDERED: POTASSIUM CHLORIDE 20 MEQ TABLET PO ONE (08:01)
[2021-03-20] MEDS ORDERED: amLODIPine 10 MG TABLET PO SCH (09:00)
[2021-03-20] MEDS ORDERED: metOLazone 5 MG TABLET PO SCH (09:00)
[2021-03-20] MEDS: ASCORBIC ACID 500 MG TABLET PO SCH (09:44)
[2021-03-20] MEDS: carvediloL 6.25 MG TABLET PO SCH (09:44)
[2021-03-20] MEDS: POLYETHYLENE GLYCOL POWDER 17 GM PACK PO SCH (09:44)
[2021-03-20] MEDS: ASPIRIN EC 81 MG TABLET PO SCH (09:44)
[2021-03-20] MEDS: APIXABAN 5 MG TABLET PO SCH (09:44)
[2021-03-20] MEDS: LOSARTAN 50 MG TABLET PO SCH (09:44)
[2021-03-20] MEDS: SPIRONOLACTONE 25 MG TABLET PO SCH (09:45)
[2021-03-20] MEDS: DOCUSATE SODIUM 100 MG CAPSULE PO SCH (09:49)
[2021-03-20] MEDS: AZITHROMYCIN INJ 500 MG in SODIUM CHLORIDE 0.9% 250 ML IV SCH (11:10)
[2021-03-20 11:49] VITALS: BP 121/63
[2021-03-20] MEDS: cefTRIAXone 1,000 MG in SODIUM CHLORIDE 0.9% 100 ML IV SCH (14:30)
== END 2021-03-20 16:07 | DRG 190 ==
LOC: EDBD → EDUNIT# → N.ED 01:56 → N.EDINP 01:56 → SUATTDRO 06:32 → N.EDINP 15:02 → N.TELES 15:28
PROVIDERS: ADMIT Internal Medicine; ATTEND Internal Medicine